=== PATIENT | female | born 1980 | race Two or more races ===

== ENCOUNTER 2023-02-09 08:00 | Outpatient (CLI) | payer OTHER ==
[~2023-02-09] VITALS: Ht 160 cm; Wt 108.9 kg
[2023-02-09] MEDS ORDERED: METFOR PO (10:12)
[2023-02-09] MEDS ORDERED: AVAPRO150 MG PO (10:13)
[2023-02-09] MEDS ORDERED: OZEM PO (10:14)
[2023-02-09] MEDS ORDERED: FERROUS SU PO (10:17)
[2023-02-09] MEDS ORDERED: CHLOROQUINE PH250 MG PO (10:32)
[2023-02-09] MEDS ORDERED: SYNTHROID50 MCG PO (10:32)
[2023-02-16] MEDS ORDERED: METFORMIN HCL750 MG (07:58)
[2023-02-16] MEDS ORDERED: OZEMPIC0.25 MG/01 (08:01)
== END 2023-02-09 08:30 | disposition home or self-care (01) ==
LOC: LAB 08:00 → EDSTATUS 02-12 08:15 → SURG 02-12 08:15 → O/R 02-12 19:07
PROVIDERS: ATTEND Student in an Organized Health Care Education/Training Program
DX: N92.0 Excessive and frequent menstruation with regular cycle (principal); D50.0 Iron deficiency anemia secondary to blood loss (chronic); N81.11 Cystocele, midline; Z01.818 Encounter for other preprocedural examination; J45.41 Moderate persistent asthma with (acute) exacerbation; I10 Essential (primary) hypertension

== ENCOUNTER 2023-02-11 07:28 | Inpatient (IN) | payer OTHER ==
[~2023-02-11] VITALS: Ht 160 cm; Wt 108.9 kg
[~2023-02-11 07:28] MED LIST: AVAPRO150 MG PO; CHLOROQUINE PH250 MG PO; FERROUS SU PO; METFOR PO; OZEM PO; SYNTHROID50 MCG PO
[2023-02-11] MEDS ORDERED: TOPROL XL25 M1 PO (07:42)
[2023-02-11] MEDS ORDERED: LEVOXYL50 MCG (07:43)
[2023-02-11] MEDS ORDERED: GLUMETZA500 MG (07:43)
[2023-02-11] MEDS ORDERED: HYDROCHLOROTHIA25 MG PO (07:44)
[2023-02-11] MEDS ORDERED: IRBESARTAN150 MG PO (07:44)
[2023-02-11] MEDS ORDERED: ROSADAN45 G1 TP (07:45)
--- NOTE | 2023-02-11 07:46 | NUR ---
PACIENTE ALERTA Y ORIENTDA X 3 REFIERE QUE DRA ARMIDA LÓPEZ BUSTOS LE INFICO QUE VINIERA A LA ER Y QUE LA LLAMARA, PACIENTE INDICA QUE TIENE HEMOGLOBINA BAJA Y QUE MANANA LA OPERAN, ADEMAS REFIERE DOLOR PELVICO.
--- NOTE | 2023-02-11 09:05 | NUR ---
PTE ALERTA Y ORIENTADA X3 EVALUADA POR DR JORDAN. SE ORIENTA A PTE SOBRE TX MEDICO. PTE REFIERE ENTENDER. SE COLECTAN MUESTRAS DE LABORATORIO CON MEIDDAS ASEPTICAS. SE ADMINISTRA MEDICAMENTO DESIREE ORDEN. SE ENTREGA COLECTOR DE ORINA, PENDIENTE AL MISMO.
--- NOTE | 2023-02-11 15:25 | NUR ---
SE RECIBE PTE ALERTA Y ORIENTADA X3. EM DAT BAJA CON BARANDAS ELEVADAS, CANALIZADA EN RA, #20, PATENTE, MARY DE EDEMA Y ERITEMA, RECIBIENDO IV FLUIDS. PEND ADMISION
[2023-02-13] MEDS ORDERED: IBU800 MG PO (14:49)
[2023-02-13] MEDS ORDERED: PERCOCET 5-3251 EACH PO (14:49)
[2023-02-13] MEDS ORDERED: COLACE100 MG PO (14:49)
[2023-02-13] MEDS ORDERED: SIMETHICONE80 MG PO (14:49)
[2023-02-16] MEDS ORDERED: METFORMIN HCL750 MG (07:58)
[2023-02-16] MEDS ORDERED: OZEMPIC0.25 MG/01 (08:01)
== END 2023-02-13 16:08 | disposition home or self-care (01) | DRG 743 ==
LOC: ER 07:28 → OB/GYN 16:08
PROVIDERS: ADMIT Student in an Organized Health Care Education/Training Program; ATTEND Student in an Organized Health Care Education/Training Program
PROC: 30233N1 Transfusion of Nonautologous Red Blood Cells into Peripheral Vein, Percutaneous Approach (ICD-10-PCS; 2023-02-11)
PROC: 0UT74ZZ Resection of Bilateral Fallopian Tubes, Percutaneous Endoscopic Approach (ICD-10-PCS; 2023-02-12)
PROC: 0TJB8ZZ Inspection of Bladder, Via Natural or Artificial Opening Endoscopic (ICD-10-PCS; 2023-02-12)
PROC: 0UT94ZZ Resection of Uterus, Percutaneous Endoscopic Approach (ICD-10-PCS; principal; 2023-02-12 16:30)
DX: D25.1 Intramural leiomyoma of uterus (principal); Z20.822 Contact with and (suspected) exposure to COVID-19; D50.0 Iron deficiency anemia secondary to blood loss (chronic)